=== PATIENT | male | born 1985 | race Caucasian/White ===

== ENCOUNTER 2020-03-13 13:57 | Emergency (ER) | payer BC ==
[~2020-03-13] VITALS: Ht 188 cm; Wt 73.0 kg
[2020-03-13] MEDS ORDERED: [UNRECOGNIZED DRUG - CODE] TOP (14:23)
[2020-03-13 15:11] LABS: BASO % 0.4 % (0.0-1.0); EOS # 0.1 10^3/uL (0.0-0.5); EOS % 1.5 % (0.0-3.0); HEMATOCRIT 45.6 % (42.0-52.0); HEMOGLOBIN 15.1 g/dl (13.5-17.5); LYMPH # 1.8 10^3/uL (1.5-5.0); LYMPH % 37.1 % (24.0-44.0); MEAN CORPUSCULAR HEMOGLOBIN 29.4 pg (27.0-33.0); MEAN CORPUSCULAR HGB CONC 33.1 g/dl (32.0-36.5); MEAN CORPUSCULAR VOLUME 88.9 fl (80.0-96.0); MONO # 0.4 10^3/uL (0.0-0.8); MONO % 8.6 % (0.0-5.0); NEUTROPHILS # 2.5 10^3/uL (1.5-8.5); NEUTROPHILS % 52.2 % (36.0-66.0); PLATELET COUNT, AUTOMATED 170 10^3/uL (150-450); RED BLOOD COUNT 5.13 10^6/uL (4.30-6.10); WHITE BLOOD COUNT 4.8 10^3/uL (4.0-10.0)
[2020-03-13 15:21] LABS: INR 1.09; PROTHROMBIN TIME 13.8 SECONDS (11.8-14.0)
[2020-03-13 15:40] LABS: BLOOD UREA NITROGEN 17 MG/DL (7-18); CALCIUM LEVEL 9.1 MG/DL (8.5-10.1); CARBON DIOXIDE LEVEL 31 MEQ/L (21-32); CHLORIDE LEVEL 106 MEQ/L (98-107); CK-MB VALUE MASS < 1.0 NG/ML (<3.6); CPK CREATINE PHOSPHOKINASE 88 U/L (39-308); GLOMERULAR FILTRATION RATE > 60.0 (>60); GLUCOSE, FASTING 84 MG/DL (70-100); MB/CK RELATIVE INDEX 1.14 (< OR =4); SODIUM LEVEL 142 MEQ/L (136-145); TROPONIN I < 0.02 NG/ML (< 0.10)
[2020-03-13 16:03] LABS: ALBUMIN 4.1 GM/DL (3.2-5.2); ALT/SGPT 27 U/L (12-78); BILIRUBIN,DIRECT 0.1 MG/DL (0.0-0.2); BILIRUBIN,TOTAL 0.4 MG/DL (0.2-1.0); TOTAL PROTEIN 6.7 GM/DL (6.4-8.2)
[2020-03-13] MEDS ORDERED: holter (17:11)
[2020-03-13 18:45] VITALS: BP 125/62
--- NOTE | 2020-03-14 08:36 | ECGEPIP ---
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
--- NOTE | 2020-03-14 08:37 | REP ---
CHEST PORTABLE: REASON: Syncope. FINDINGS: The technique utilized in obtaining the radiograph has magnified the cardiac silhouette and accentuated the interstitial markings. The superior mediastinal structures are midline. The cardiac silhouette is unremarkable in size, shape, and position. The diaphragmatic surfaces of the lungs are regular, and the costophrenic angles are clear. The pulmonary leyva are clear. The imaged osseous structures are intact. IMPRESSION: There is no acute cardiopulmonary disease. Electronically Signed by Tyrone Rucker DO 03/14/2020 08:57 A
== END 2020-03-13 18:47 | disposition home or self-care (01) ==
LOC: M ED 13:57
DX: R55 Syncope and collapse (principal); R00.1 Bradycardia, unspecified; I45.10 Unspecified right bundle-branch block; R94.31 Abnormal electrocardiogram [ECG] [EKG]; L40.9 Psoriasis, unspecified; Z88.1 Allergy status to other antibiotic agents
CPT/HCPCS: 71045; 80048; 80076; 82550; 82553; 84443; 84484; 85025; 85610; 93005; 93041; 94760; 99285; U0003

== ENCOUNTER → 2020-03-14 | Outpatient (CLI) | payer BC ==
[~2020-03-14] MED LIST: [UNRECOGNIZED DRUG - CODE] TOP; holter
--- NOTE | 2020-03-16 23:00 | HOLTMON ---
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 Predominantly sinus rhythm with heart rates ranging from 33 bpm (3:26 AM) to a maximum of 92 bpm; average heart rate was 53 bpm. Rare PACs including 1 couplet and one triplet. No ventricular ectopy. Longest R-R interval was 2.494 seconds (1:57 AM) and was a consequence of an episode of Wenckebach type I second-degree AV block. No episodes of atrial fibrillation. Symptoms of dizziness correlated with sinus bradycardia to sinus rhythm, heart rates 47-73 bpm. Electronically Signed on 03-16-2020 23:00:24 EDT by Misbah Norris
== END ==
LOC: M EKG 12:42
PROVIDERS: ATTEND Internal Medicine
DX: R00.1 Bradycardia, unspecified (principal)